=== PATIENT | female | born 1975 | race American Indian/Alaskan Native ===

== ENCOUNTER 2019-03-17 02:28 | Emergency (ER) | payer BC ==
[2019-03-17 03:07] VITALS: RESP 16; O2SAT 98
--- NOTE | 2019-03-17 03:38 | ED PDOC ---
HPI: Abdomen Chief Complaint (Provider): abdominal pain History Per: Patient History/Exam Limitations: no limitations Onset/Duration Of Symptoms: Days (3) Current Symptoms Are (Timing): Still Present Location Of Pain/Discomfort: RLQ, Suprapubic Quality Of Discomfort: Cramping Additional Complaint(s): 43 y/o female presents for evaluation of lower abdominal cramping x 3 days, worse x 2 hours. Patient states pain is improved with ibuprofen but then returns. Patient states this morning pain woke her from her sleep; took a Percocet. Denies fever, vomiting, cough, congestion, chest pain, shortness of breath, palpitations, urinary symptoms, changes in bowel movements. Patient currently on menses but states she never has pain like this <Ellie Woodward - Last Filed: 03/17/19 04:58> <Reynaldo Rae - Last Filed: 03/17/19 05:29> Time Seen by Provider: 03/17/19 02:57 Chief Complaint (Nursing): Abdominal Pain Past Medical History Reviewed: Historical Data, Nursing Documentation, Vital Signs Vital Signs: Last Vital Signs Temp 98.4 F 03/17/19 02:55 Pulse 65 03/17/19 02:55 Resp 16 03/17/19 02:55 BP 125/83 03/17/19 02:55 Pulse Ox 98 03/17/19 02:55 Primary Care Provider: Non [facility] Provider, - Medical History PMH: No Chronic Diseases - Surgical History Other surgeries: abdominoplasty - Family History Family History: States: No Known Family Hx - Living Arrangements Living Arrangements: With Family <Ellie Woodward - Last Filed: 03/17/19 04:58> Vital Signs: Last Vital Signs Temp 98.4 F 03/17/19 02:55 Pulse 65 03/17/19 02:55 Resp 16 03/17/19 02:55 BP 125/83 03/17/19 02:55 Pulse Ox 98 03/17/19 04:58 <Reynaldo Rae - Last Filed: 03/17/19 05:29> - Home Medications Home Medications: Ambulatory Orders Medication Instructions Recorded Dicyclomine [Bentyl] 20 mg PO BID #30 tab 03/17/19 Ibuprofen [Motrin Tab] 600 mg PO Q6 #30 tab 03/17/19 - Allergies Allergies/Adverse Reactions: Allergies Allergy/AdvReac Type Severity Reaction Status Date / Time Penicillins Allergy RASH Verified 03/17/19 03:11 Review of Systems ROS Statement: Except As Marked, All Systems Reviewed And Found Negative Gastrointestinal: Positive for: Abdominal Pain <TraceEllie Maritza - Last Filed: 03/17/19 04:58> Physical Exam - Reviewed Nursing Documentation Reviewed: Yes Vital Signs Reviewed: Yes - Physical Exam Appears: Positive for: Well, Non-toxic, No Acute Distress Head Exam: Positive for: ATRAUMATIC, NORMAL INSPECTION, NORMOCEPHALIC Skin: Positive for: Normal Color Eye Exam: Positive for: Normal appearance ENT: Positive for: Normal ENT Inspection Cardiovascular/Chest: Positive for: Regular Rate, Rhythm Respiratory: Positive for: Normal Breath Sounds Gastrointestinal/Abdominal: Positive for: Bowel Sounds, Soft, Tenderness (RLQ, suprapubic) Back: Positive for: Normal Inspection Extremity: Positive for: Normal ROM Neurological/Psych: Positive for: Awake, Alert, Oriented (x3) <Ellie Woodward C - Last Filed: 03/17/19 04:58> - Laboratory Results Result Diagrams: 03/17/19 03:37 03/17/19 03:37 - ECG O2 Sat by Pulse Oximetry: 98 - Progress ED Course And Treament: -upreg -udip -cbc -cmp -CT abd/pelvis -IV toradol <TraceEllie C - Last Filed: 03/17/19 04:58> - Laboratory Results Result Diagrams: 03/17/19 03:37 03/17/19 03:37 Lab Results: Total Bilirubin 0.5 mg/dl (0.2-1.3) 03/17/19 03:37 AST 36 U/L (14-36) 03/17/19 03:37 ALT 22 U/L (9-52) 03/17/19 03:37 Alkaline Phosphatase 47 U/L (38-126) 03/17/19 03:37 Total Protein 7.4 G/DL (6.3-8.2) 03/17/19 03:37 Albumin 4.0 g/dL (3.5-5.0) 03/17/19 03:37 Globulin 3.4 gm/dL (2.2-3.9) 03/17/19 03:37 Albumin/Globulin Ratio 1.2 (1.0-2.1) 03/17/19 03:37 Urine Color Yellow (YELLOW) 03/17/19 03:37 Urine Clarity Clear (Clear) 03/17/19 03:37 Urine pH 6.0 (5.0-8.0) 03/17/19 03:37 Ur Specific Eldena 1.019 (1.003-1.030) 03/17/19 03:37 Urine Protein Negative mg/dL (NEGATIVE) 03/17/19 03:37 Urine Glucose (UA) Neg mg/dL (NEGATIVE) 03/17/19 03:37 Urine Ketones Negative mg/dL (NEGATIVE) 03/17/19 03:37 Urine Blood Moderate (NEGATIVE) 03/17/19 03:37 Urine Nitrate Negative (NEGATIVE) 03/17/19 03:37 Urine Bilirubin Negative (NEGATIVE) 03/17/19 03:37 Urine Urobilinogen 0.2-1.0 mg/dL (0.2-1.0) 03/17/19 03:37 Ur Leukocyte Esterase Neg Cipriano/uL (Negative) 03/17/19 03:37 Urine RBC (Auto) 3 /hpf (0-3) 03/17/19 03:37 Urine Microscopic WBC 2 /hpf (0-5) 03/17/19 03:37 Ur Squamous Epith Cells 1 /hpf (0-5) 03/17/19 03:37 Urine Bacteria Occ (<OCC) H 03/17/19 03:37 <Reynaldo Rae - Last Filed: 03/17/19 05:29> Medical Decision Making Medical Decision MakinAM CT SCAN OF THE ABDOMEN AND PELVIS WITH CONTRAST. CLINICAL HISTORY: Right lower quadrant pain. TECHNIQUE: Multiple axial and coronal CT images were obtained through the abdomen and pelvis after administration of intravenous contrast material. COMMENTS: Cholelithiasis without acute cholecystitis. Fluid-filled small bowels. Fluid-filled colon. Mild thickening of the cecum. The liver is of uniform attenuation without mass or defect. There is no intra or extrahepatic biliary ductal dilatation. The spleen is normal. The pancreas is of normal contour and attenuation characteristics. There is no evidence of adrenal mass. Both kidneys demonstrate prompt and equal nephrograms. The kidneys are normal in size, shape and configuration. There is no evidence of renal or ureteral mass. No renal or ureteral calculi are identified. There is no hydroureter or hydronephrosis. No evidence for appendicitis. No evidence for small or large bowel obstruction. There is no evidence of abdominal ascites or lymphadenopathy. There is no evidence of intrinsic or extrinsic bladder mass. There is no pelvic ascites or lymphadenopathy. Images of the lung bases show no evidence of pleural or parenchymal mass. There are no pleural effusions. The bony structures are free of lytic or blastic lesions. IMPRESSION: Uncomplicated enterocolitis. Cholelithiasis without acute cholecystitis. Fluid-filled small bowels. Fluid-filled colon. Mild thickening of the cecum. Patient re-evaluated at bedside, states she feels much better INformed of results, advised followup with GI Will provide [facility] [employer] Will prescribe bentyl, NSAID Very well appearing upon discharge <Reynaldo Rae - Last Filed: 03/17/19 05:29> Disposition - Disposition Disposition Time: 05:00 Patient Signed Over To: Reynaldo Rae Handoff Comments: pending CT, re-eval <Ellie Woodward - Last Filed: 03/17/19 04:58> - Patient ED Disposition Is Patient to be Admitted: No Counseled Patient/Family Regarding: Studies Performed, Diagnosis, Need For Followup - Disposition Disposition: Routine/Home Disposition Time: 05:30 <Reynaldo Rae - Last Filed: 03/17/19 05:29> - Clinical Impression Clinical Impression: Enterocolitis - Disposition Referrals: [facility] Pollock [Outside] Stone Schuler MD, PhD [Staff Provider] - Condition: IMPROVED Prescriptions: Dicyclomine [Bentyl] 20 mg PO BID #30 tab Ibuprofen [Motrin Tab] 600 mg PO Q6 #30 tab Instructions: Colitis, Stomach Ache and Stomach Upset
[2019-03-17 04:08] LABS: ALB/GLOB RATIO 1.2 (1.0-2.1); ALT/SGPT 22 U/L (9-52); AST/SGOT 36 U/L (14-36); BASO % 0.8 % (0.0-2.0); BLOOD UREA NITROGEN 10 mg/dl (7-17); CALCIUM 8.9 mg/dL (8.4-10.2); EOS # 0.1 K/uL (0.0-0.7); EOS % 1.8 % (0.0-4.0); GFR NON-AFRICAN AMERICAN > 60; HEMOGLOBIN 12.5 g/dL (12.0-16.0); LYMPH # 1.9 K/uL (1.0-4.3); MEAN CELL VOLUME 93.1 fl (81.0-99.0); MEAN CORPUSCULAR HEMOGLOBIN 31.4 pg (27.0-31.0); MEAN CORPUSCULAR HGB CONC 33.7 g/dL (33.0-37.0); MEAN PLATELET VOLUME 7.6 fl (7.2-11.7); MONO # 0.6 K/uL (0.0-0.8); MONO % 9.8 % (0.0-10.0); NEUT # 3.2 K/uL (1.8-7.0); NEUT % 54.6 % (50.0-75.0); NRBC % 0.1 % (0.0-0.0); RBC 3.97 Mil/uL (3.80-5.20); WHITE BLOOD COUNT 5.8 K/uL (4.8-10.8)
[2019-03-17 04:09] LABS: SQUAMOUS EPITHIAL 1 /hpf (0-5); URINE BACTERIA OCC (<OCC); URINE BILIRUBIN NEGATIVE (NEGATIVE); URINE BLOOD MODERATE (NEGATIVE); URINE CLARITY CLEAR (Clear); URINE COLOR YELLOW (YELLOW); URINE GLUCOSE (UA) NEG (NEGATIVE); URINE LEUKOCYTE ESTERASE NEG Leu/uL (Negative); URINE PROTEIN NEGATIVE (NEGATIVE); URINE UROBILINOGEN 0.2-1.0 mg/dL (0.2-1.0)
[2019-03-17] MEDS ORDERED: Sodium Chloride 0.9% 50 ML IV ONE (04:24)
[2019-03-17] MEDS ORDERED: Iohexol 300 100 ML IJ ONE (04:24)
[2019-03-17 05:50] VITALS: BP 125/84; PULSE 62; TEMP 98.8
--- NOTE | 2019-03-17 09:14 | CT ---
Date of service: 03/17/2019 PROCEDURE: CT Abdomen and Pelvis with contrast HISTORY: RLQ pain COMPARISON: None. TECHNIQUE: Following the intravenous administration of iodinated contrast material, a CT examination of the abdomen and pelvis was performed from the domes of the diaphragms to the symphysis pubis with reformatted datasets provided in axial, sagittal and coronal planes. Oral contrast was not administered as per referring physician request. Contrast dose: Omnipaque 300, 90 cc Radiation dose: Total exam DLP = 473.54 mGy-cm. This CT exam was performed using one or more of the following dose reduction techniques: Automated exposure control, adjustment of the mA and/or kV according to patient size, and/or use of iterative reconstruction technique. FINDINGS: LOWER THORAX: Unremarkable. LIVER: Unremarkable. No gross lesion or ductal dilatation. GALLBLADDER AND BILE DUCTS: Cholelithiasis identified with the gallbladder otherwise unremarkable. Normal caliber CBD. PANCREAS: No cystic/solid mass seen related to the pancreas with pancreatic duct identified but normal caliber. SPLEEN: Unremarkable. ADRENALS: Unremarkable. No mass. KIDNEYS AND URETERS: Unremarkable. No hydronephrosis. No solid mass. VASCULATURE: Unremarkable. No aortic aneurysm. No aortic atherosclerotic calcification or mural plaque present. BOWEL: Evaluation of the gastrointestinal tract is limited due to the lack of oral contrast administration. No bowel obstruction identified. No gross mural thickening appreciable. Limited distention of small-bowel loops in the pelvis limits the evaluation. The stomach is also collapsed and is poorly evaluated. Mural thickening is not completely excluded. APPENDIX: Normal appendix. PERITONEUM: Unremarkable. No free fluid. No free air. LYMPH NODES: Unremarkable. No enlarged lymph nodes. BLADDER: Unremarkable. REPRODUCTIVE: Unremarkable. BONES: No acute fracture. OTHER FINDINGS: None. IMPRESSION: Mural thickening of a few small-bowel loops in the pelvis is difficult to exclude however there are largely collapsed. Consider potential limited limited enteritis. Gastritis is difficult to exclude given lack of distention of the stomach as well. Evaluation of the gastrointestinal tract is limited due to the lack of oral contrast administration. Examination otherwise unremarkable. Cholelithiasis. Preliminary report provided by Rahel, 03/17/2019, 5:16 a.m..
== END 2019-03-17 05:41 | disposition home or self-care (01) ==
LOC: H.ER 02:28
DX: K52.9 Noninfective gastroenteritis and colitis, unspecified (principal); Z79.899 Other long term (current) drug therapy; Z88.0 Allergy status to penicillin
CPT/HCPCS: 74177; 80053; 81003; 81025; 85025; 96374; 99284; J1885; Q9967